=== PATIENT | male | born 1960 | race Caucasian/White ===

== ENCOUNTER 2019-12-08 18:20 | Emergency (ER) | payer BC ==
[2019-12-08] MEDS ORDERED: Acetaminophen/HYDROcodone 325-10 MG Tab PO ONE (18:21)
[2019-12-08] MEDS ORDERED: Acetaminophen/HYDROcodone 325-10 MG Tab ONE (19:47)
--- NOTE | 2019-12-08 19:49 | EDM.PDOC ---
ED HPI GENERAL MEDICAL PROBLEM - General Chief Complaint: Lower Extremity Injury/Pain Stated Complaint: HIP HURTS Time Seen by Provider: 12/08/19 19:15 Source of Information: Reports: Patient, RN History Limitations: Reports: No Limitations - History of Present Illness INITIAL COMMENTS - FREE TEXT/NARRATIVE: Ed with c/o pain to right hip since 6pm, Denies specific injury. Notes short and getting in and out of pickup today, Pain worse with sitting. Noting improvement in pain after lying on cot , rolled over and felt something pop. Mild discomfort now with sitting or stretching right leg. No calf pain. Right Hip Pain Score (Numeric/FACES): 8 - Related Data Allergies Allergy/AdvReac Type Severity Reaction Status Date / Time atorvastatin [From Lipitor] AdvReac Muscle Verified 12/08/19 18:27 Aches peaches Allergy Rash Uncoded 12/08/19 18:28 Home Meds: Home Meds Lisinopril [Zestril] 20 mg PO DAILY 12/08/19 [History] Metoprolol Tartrate 25 mg PO DAILY 12/08/19 [History] Rosuvastatin [Crestor] 10 mg PO BEDTIME 12/08/19 [History] amLODIPine [Norvasc] 5 mg PO DAILY 12/08/19 [History] Past Medical History HEENT History: Reports: None Cardiovascular History: Reports: Bypass, CAD, High Cholesterol, Hypertension Respiratory History: Reports: None Gastrointestinal History: Reports: None Genitourinary History: Reports: None Musculoskeletal History: Reports: None Neurological History: Reports: None Psychiatric History: Reports: None Endocrine/Metabolic History: Reports: None Hematologic History: Reports: None Immunologic History: Reports: None Oncologic (Cancer) History: Reports: None Dermatologic History: Reports: None Social & Family History - Tobacco Use Smoking Status *Q: Never Smoker Second Hand Smoke Exposure: No - Caffeine Use Caffeine Use: Reports: Tea - Recreational Drug Use Recreational Drug Use: No Review of Systems - Review of Systems Review Of Systems: Comprehensive ROS is negative, except as noted in HPI. ED EXAM, GENERAL - Physical Exam Exam: See Below Exam Limited By: No Limitations General Appearance: Alert, Mild Distress, Obese Eye Exam: Bilateral Eye: EOMI Ears: Normal External Exam, Hearing Grossly Normal Nose: Nasal Deformity Throat/Mouth: Normal Inspection Head: Atraumatic, Normocephalic Neck: Normal Inspection Respiratory/Chest: No Respiratory Distress Cardiovascular: Normal Peripheral Pulses, Regular Rate, Rhythm. No: No Edema (1 +) GI/Abdominal: Normal Bowel Sounds Back Exam: Full Range of Motion Extremities: Normal Capillary Refill, Limited Range of Motion (mild discomfort with straight leg raise on right and flexion. no pain with mild internal and external rotation. no swelling or deformity.) Neurological: Alert, Oriented, Normal Cognition Psychiatric: Normal Affect Skin Exam: Warm, Dry, Intact, Normal Color Course - Vital Signs Last Recorded V/S: Last Vital Signs Temp 98.8 F 12/08/19 18:24 Pulse 80 12/08/19 18:24 Resp 20 12/08/19 18:24 BP 150/75 H 12/08/19 18:24 Pulse Ox 98 12/08/19 18:24 - Orders/Labs/Meds Orders: Active Orders 24 hr Category Date Time Status Hip Min 2V or 3V w Pelvis Rt [CR] Stat Exams 12/08/19 18:38 Ordered Meds: Medications Discontinued Medications Generic Name Dose Route Start Last Admin Trade Name Myriam PRN Reason Stop Dose Admin Hydrocodone Bitart/Acetaminophen Confirm 12/08/19 19:47 [place] 325-10 Mg Administered 12/08/19 19:48 Dose 4 tab .ROUTE .STMugenUp-MED ONE - Radiology Interpretation Free Text/Narrative:: [facility] Final Radiology Report Call: [phone] assistance Online chat: [email or web address] Name: SANGEETHA PRADO Age: 59Years M Date: 12/08/2019 SSN: -- : 1960 Study: XR HIP COMPLETE UNILAT MIN OF 2 VIEWS RIGHT Requesting Physician: ERLIN ASHRAF Images: 2 Addl Studies: Provided Clinical History: Contrast: Contrast Medium: Contrast Amount: Contrast Method: CONFIDENTIALITY STATEMENT This report is intended only for use by the referring physician, and only in accordance with law. If you received this in error, call [phone]. Page 1 of 1 PROCEDURE INFORMATION: Exam: XR Right Hip with Pelvis when Performed Exam date and time: 12/08/2019 7:08 PM Age: 59 years old Clinical indication: Hip pain; Right hip TECHNIQUE: Imaging protocol: XR Right hip with pelvis when performed. Views: 2 or 3 views. COMPARISON: No relevant prior studies available. FINDINGS: Bones/joints: No fracture. Normal alignment. Hip joint spaces and articular surfaces are grossly wellmaintained. The anatomic configuration does not specifically predispose to femoro-acetabular impingement. No radiographic evidence to suggest transient osteoporosis or avascular necrosis. 8 mm bone island in the medial femoral neck. No lytic lesions. The visualized SI joints, pubic symphysis, and sacrum/pelvis were unremarkable. Soft tissues: No gross soft tissue abnormalities. IMPRESSION: No acute abnormalities. Thank you for allowing us to participate in the care of your patient. Dictated and Authenticated by: Mikel Naylor MD 12/08/2019 7:24 PM Central Time ([place] & [place] Departure - Departure Time of Disposition: 19:44 Disposition: Home, Self-Care 01 Condition: Good Clinical Impression: Right hip pain - Discharge Information *PRESCRIPTION DRUG MONITORING PROGRAM REVIEWED*: No *COPY OF PRESCRIPTION DRUG MONITORING REPORT IN PATIENT NIKI: No Instructions: Hip Pain Referrals: PCP,Not In Area [Primary Care Provider] - Forms: ED Department Discharge Additional Instructions: Hydrocodone/Apap 10/325 one every 6 hours as needed for severe pain may alternate tylenol 650mg with ibuprofen 600mg every 4 hours as needed for moderate pain ice to right hip light activity Clinic follow up friday to recheck Sepsis Event Note - Evaluation Sepsis Screening Result: No Definite Risk - Focused Exam Vital Signs: Vital Signs Temp Pulse Resp BP Pulse Ox 12/08/19 18:24 98.8 F 80 20 150/75 H 98 Date Exam was Performed: 12/09/19 Time Exam was Performed: 03:17
== END 2019-12-08 20:02 | disposition home or self-care (01) ==
LOC: DL.ED 18:20
DX: M25.551 Pain in right hip (principal); I10 Essential (primary) hypertension; I25.10 Atherosclerotic heart disease of native coronary artery without angina pectoris; Z95.1 Presence of aortocoronary bypass graft; Z79.899 Other long term (current) drug therapy; Z88.8 Allergy status to other drugs, medicaments and biological substances
CPT/HCPCS: 73502; 99283; A9270